=== PATIENT | male | born 1935 | race African-American/Black ===

== ENCOUNTER 2017-05-22 21:00 | Emergency (ER) | payer OTHER ==
[~2017-05-22] VITALS: Ht 177.8 cm; Wt 95.3 kg
[2017-05-22 23:12] LABS: Basophils # (auto) 0.1 uL; Basophils % (auto) 0.9 % (0.0-2.0); Eosinophils # (auto) 0.1 uL; Eosinophils % (auto) 0.9 % (0.0-7.0); Hematocrit 43.1 % (41.0-53.0); Hemoglobin 14.2 g/dL (13.5-17.5); Lymphocytes # (auto) 1.1 uL; Lymphocytes % (auto) 12.7 % (10.0-50.0); Mean Corpuscular Hemoglobin 28.2 pg (28.0-32.0); Mean Corpuscular Volume 85.6 fL (80.0-100.0); Monocytes # (auto) 0.7 uL; Monocytes % (auto) 8.2 % (0.0-12.0); Neutrophils # (auto) 6.6 uL; Neutrophils % (auto) 77.3 % (37.0-80.0); Nucleated Red Blood Cells % 0.1 %; Platelet Count (auto) 175 10^3/uL (140-450); Red Blood Cells 5.04 10^6/uL (4.5-5.90); Red Cell Distribution Width 15.2 % (11.8-14.3); White Blood Cell 8.6 10^3/uL (4.4-10.8)
[2017-05-22 23:23] LABS: Alanine Aminotransferase 19 U/L (16-61); Albumin 3.5 g/dL (3.4-5.0); Anion Gap 10 (5-15); Aspartate Aminotransferase 15 U/L (15-37); BUN/Creatinine Ratio 14.1; Blood Urea Nitrogen 26 mg/dL (7-18); Calcium 8.8 mg/dL (8.5-10.1); Carbon Dioxide 24 mmol/L (21-32); Chloride 103 mmol/L (98-107); GFR African American 45 mL/min; GFR Non-African American 37 mL/min; Glucose 167 mg/dL (74-106); Magnesium 2.1 mg/dL (1.6-2.6); Potassium 3.6 mmol/L (3.5-5.1); Sodium 137 mmol/L (136-145)
[2017-05-22 23:27] LABS: INR 2.4 (0.9-1.15); Partial Thromboplastin Time 36.9 sec (22.64-33.71); Prothrombin Time 26.4 sec (9.37-12.3)
[2017-05-22 23:28] LABS: Alkaline Phosphatase 76 U/L (45-117); Bilirubin, Total 1.2 mg/dL (0.2-1.0); Total Protein 7.7 g/dL (6.4-8.2)
[2017-05-22 23:48] LABS: Urine WBC None Seen /hpf (0 - 3)
[2017-05-22 23:59] LABS: Urine Bacteria NONE SEEN /hpf (None Seen); Urine Blood Negative /uL (Negative); Urine Specific Gravity 1.012 (1.001-1.035)
[2017-05-23] MEDS ORDERED: SODIUM CHLORIDE 0.9% 1,000 ML IV ONE (01:22)
[2017-05-23 02:24] LABS: Blood Alcohol < 3.0 mg/dL (0-5); Magnesium 2.1 mg/dL (1.6-2.6)
[2017-05-23 02:37] LABS: INR 2.49 (0.9-1.15); Partial Thromboplastin Time 36.7 sec (22.64-33.71); Prothrombin Time 27.4 sec (9.37-12.3)
[2017-05-23 03:09] VITALS: BP 144/70
== END 2017-05-23 04:15 | disposition home or self-care (01) ==
LOC: ER 21:00
DX: R42 Dizziness and giddiness (principal); R53.1 Weakness; E87.6 Hypokalemia; E86.0 Dehydration; E11.65 Type 2 diabetes mellitus with hyperglycemia; I10 Essential (primary) hypertension; I48.91 Unspecified atrial fibrillation; E78.00 Pure hypercholesterolemia, unspecified
CPT/HCPCS: 36415; 70450; 71045; 80053; 80320; 81001; 83735; 84484; 85025; 85379; 85610; 85730; 93005; 96360; 99285; J7030

== ENCOUNTER 2021-11-03 21:26 | Inpatient (IN) | payer OTHER ==
[~2021-11-03] VITALS: Ht 177.8 cm; Wt 93.7 kg
[2021-11-03 22:38] LABS: Urine WBC None Seen /hpf (0 - 3)
[2021-11-03 22:42] LABS: Basophils # (auto) 0.1 10 ^3/uL (0-0.2); Eosinophils # (auto) 0.2 10 ^3/uL (0-0.8); Monocytes # (auto) 0.9 10 ^3/uL (0-1.3); Neutrophils # (auto) 5.1 10 ^3/uL (1.6-8.6)
[2021-11-03 22:43] LABS: Eosinophils % (auto) 2.7 % (0.0-7.0); Hematocrit 34.1 % (41.0-53.0); Hemoglobin 10.8 g/dL (13.5-17.5); Lymphocytes # (auto) 1.5 10 ^3/uL (0.4-5.4); Lymphocytes % (auto) 19.3 % (10.0-50.0); Mean Corpuscular Hemoglobin 26.2 pg (28.0-32.0); Mean Corpuscular Hgb Conc. 31.8 g/dL (32.0-36.0); Mean Corpuscular Volume 82.4 fL (80.0-100.0); Red Blood Cells 4.14 10^6/uL (4.5-5.90); Red Cell Distribution Width 16.7 % (11.8-14.3); White Blood Cell 7.8 10^3/uL (4.4-10.8)
[2021-11-03 23:04] LABS: Albumin 3.5 g/dL (3.4-5.0); BUN/Creatinine Ratio 16.3; Calcium 8.7 mg/dL (8.5-10.1); Potassium 3.9 mmol/L (3.5-5.1)
[2021-11-03 23:05] LABS: Urine Bacteria FEW /hpf (None Seen); Urine Blood Negative /uL (Negative); Urine Hyaline Cast FEW /lpf (0 - 2); Urine Specific Gravity 1.013 (1.001-1.035)
[2021-11-03 23:17] LABS: Bilirubin, Total 1.2 mg/dL (0.2-1.0); Total Protein 7.3 g/dL (6.4-8.2)
[2021-11-04] MEDS ORDERED: amLODIPine BESYLATE 5 MG TAB PO ONE (00:45)
[2021-11-04 01:51] LABS: INR 1.84 (0.9-1.15)
[2021-11-04] MEDS ORDERED: NITROGLYCERIN 0.4 MG SL TAB SL PRN (06:30)
[2021-11-04] MEDS ORDERED: ONDANSETRON HCL 4 MG/2 ML VIAL IV PRN (06:30)
[2021-11-04] MEDS ORDERED: MORPHINE SULFATE INJ 2 MG/ml SYRG IV PRN (06:30)
[2021-11-04] MEDS ORDERED: ACETAMINOPHEN 325 MG TAB PO PRN (06:30)
[2021-11-04] MEDS: SPIRONOLACTONE 25 MG TAB PO SCH (09:53)
[2021-11-04] MEDS: LOSARTAN POTASSIUM 50 MG TAB PO SCH (09:54)
[2021-11-04] MEDS: METOPROLOL TARTRATE 25 MG TAB PO SCH ×2 (09:55→22:43)
[2021-11-04] MEDS ORDERED: ASPirin 81 mg TAB PO SCH (10:00)
[2021-11-04] MEDS: PANTOPRAZOLE 40 MG TAB PO SCH (10:10)
[2021-11-04 10:43] LABS: Cholesterol 110 mg/dL (< 200); HDL Cholesterol 43 mg/dL (40-59); LDL Cholesterol 62 mg/dL (< 100); Triglycerides 102 mg/dL (< 150)
[2021-11-04] MEDS: hydrALAZINE HCL 25 MG TAB PO SCH ×2 (14:51→22:42)
[2021-11-04 15:56] LABS: INR 2.03 (0.9-1.15); Partial Thromboplastin Time 37.9 sec (24.6-33.4)
[2021-11-04] MEDS ORDERED: WARFARIN SODIUM 2.5 MG TAB PO ONE ×2 (17:00→22:30)
[2021-11-04] MEDS: TAMSULOSIN HYDROCHLORIDE 0.4 MG CAP PO SCH (17:51)
[2021-11-04] MEDS: cloNIDine HCL 0.1 MG TAB PO PRN (18:50)
[2021-11-04 22:41] VITALS: BP 183/96
[2021-11-04] MEDS: ATORVASTATIN 20 MG TAB PO SCH (22:43)
[2021-11-04 23:26] VITALS: BP 176/89
[2021-11-05] VITALS (7 sets, daily range): BP systolic 149–188; BP diastolic 74–97
[2021-11-05] MEDS: cloNIDine HCL 0.1 MG TAB PO PRN ×2 (04:37→16:37)
[2021-11-05 05:08] LABS: Basophils # (auto) 0.1 10 ^3/uL (0-0.2); Basophils % (auto) 0.9 % (0.0-2.0); Eosinophils # (auto) 0.3 10 ^3/uL (0-0.8); Eosinophils % (auto) 3.3 % (0.0-7.0); Hemoglobin 11.3 g/dL (13.5-17.5); Lymphocytes # (auto) 1.3 10 ^3/uL (0.4-5.4); Lymphocytes % (auto) 16.8 % (10.0-50.0); Monocytes # (auto) 0.8 10 ^3/uL (0-1.3); Red Cell Distribution Width 16.5 % (11.8-14.3); White Blood Cell 7.9 10^3/uL (4.4-10.8)
[2021-11-05 05:11] LABS: Hematocrit 34.6 % (41.0-53.0); Mean Corpuscular Hemoglobin 26.5 pg (28.0-32.0); Mean Corpuscular Hgb Conc. 32.6 g/dL (32.0-36.0); Mean Corpuscular Volume 81.4 fL (80.0-100.0); Monocytes % (auto) 10.1 % (0.0-12.0); Neutrophils # (auto) 5.5 10 ^3/uL (1.6-8.6); Neutrophils % (auto) 68.9 % (37.0-80.0); Nucleated Red Blood Cells % 0.1 %; Red Blood Cells 4.24 10^6/uL (4.5-5.90)
[2021-11-05 05:18] LABS: Albumin 3.3 g/dL (3.4-5.0); BUN/Creatinine Ratio 17.4; Calcium 8.7 mg/dL (8.5-10.1); Potassium 3.8 mmol/L (3.5-5.1)
[2021-11-05 05:21] LABS: Bilirubin, Total 1.1 mg/dL (0.2-1.0); Total Protein 7.1 g/dL (6.4-8.2)
[2021-11-05 05:27] LABS: INR 1.91 (0.9-1.15); Partial Thromboplastin Time 38.2 sec (24.6-33.4)
[2021-11-05] MEDS: hydrALAZINE HCL 25 MG TAB PO SCH ×3 (05:40→21:40)
[2021-11-05] MEDS: PANTOPRAZOLE 40 MG TAB PO SCH (08:24)
[2021-11-05] MEDS: METOPROLOL TARTRATE 25 MG TAB PO SCH ×2 (08:25→21:39)
[2021-11-05] MEDS: SPIRONOLACTONE 25 MG TAB PO SCH (08:25)
[2021-11-05] MEDS: LOSARTAN POTASSIUM 50 MG TAB PO SCH (08:26)
[2021-11-05] MEDS ORDERED: WARFARIN SODIUM 2 MG TAB PO ONE (17:00)
[2021-11-05] MEDS: TAMSULOSIN HYDROCHLORIDE 0.4 MG CAP PO SCH (17:34)
[2021-11-05] MEDS ORDERED: hydrALAZINE HCL 20 MG/ML VL IV ONE (17:45)
[2021-11-05] MEDS ORDERED: TAM04C PO (20:31)
[2021-11-05] MEDS ORDERED: ASPI-543 PO (20:31)
[2021-11-05] MEDS ORDERED: METO-158 PO (20:31)
[2021-11-05] MEDS ORDERED: SODI325T PO (20:31)
[2021-11-05] MEDS ORDERED: TROS20TA3 PO (20:31)
[2021-11-05] MEDS ORDERED: WARF2.5T39 PO (20:31)
[2021-11-05] MEDS ORDERED: HYDR-4298 PO (20:31)
[2021-11-05] MEDS ORDERED: CALC0.25 PO (20:31)
[2021-11-05] MEDS ORDERED: FERR-20 PO (20:31)
[2021-11-05] MEDS ORDERED: LOSA-39 PO (20:31)
[2021-11-05] MEDS ORDERED: ATOR80TA PO (20:31)
[2021-11-05] MEDS: ATORVASTATIN 20 MG TAB PO SCH (21:39)
[2021-11-05] MEDS ORDERED: SPIR25TA PO (22:53)
[2021-11-06] VITALS (7 sets, daily range): BP systolic 142–170; BP diastolic 68–88
[2021-11-06] MEDS: hydrALAZINE HCL 25 MG TAB PO SCH (05:51)
[2021-11-06 06:07] LABS: INR 2.33 (0.9-1.15); Partial Thromboplastin Time 39.3 sec (24.6-33.4)
[2021-11-06] MEDS: PANTOPRAZOLE 40 MG TAB PO SCH (10:19)
[2021-11-06] MEDS: METOPROLOL TARTRATE 25 MG TAB PO SCH ×2 (10:19→20:02)
[2021-11-06] MEDS: SPIRONOLACTONE 25 MG TAB PO SCH (10:19)
[2021-11-06] MEDS: LOSARTAN POTASSIUM 50 MG TAB PO SCH (10:20)
[2021-11-06] MEDS ORDERED: CLON0.1T PO (13:03)
[2021-11-06] MEDS: cloNIDine HCL 0.1 MG TAB PO PRN (15:58)
[2021-11-06] MEDS ORDERED: WARFARIN SODIUM 2.5 MG TAB PO ONE (17:00)
[2021-11-06] MEDS ORDERED: hydrALAZINE HCL 20 MG/ML VL IV ONE (17:45)
[2021-11-06] MEDS: TAMSULOSIN HYDROCHLORIDE 0.4 MG CAP PO SCH (17:47)
[2021-11-06] MEDS: ATORVASTATIN 20 MG TAB PO SCH (20:01)
[2021-11-06] MEDS ORDERED: hydrALAZINE HCL 25 MG TAB PO SCH (22:00)
== END 2021-11-06 22:10 | disposition home or self-care (01) | DRG 305 ==
LOC: ER 21:26 → TELE 11-04 06:40 → TELE-WESTW 11-04 21:52
PROVIDERS: ADMIT Nurse Practitioner; ATTEND Internal Medicine Nephrology
DX: I16.1 Hypertensive emergency (principal); D68.9 Coagulation defect, unspecified; G93.40 Encephalopathy, unspecified; N17.9 Acute kidney failure, unspecified; E78.5 Hyperlipidemia, unspecified; F17.200 Nicotine dependence, unspecified, uncomplicated; I48.91 Unspecified atrial fibrillation; Z20.822 Contact with and (suspected) exposure to COVID-19; E11.22 Type 2 diabetes mellitus with diabetic chronic kidney disease; N18.32 Chronic kidney disease, stage 3b; I12.9 Hypertensive chronic kidney disease with stage 1 through stage 4 chronic kidney disease, or unspecified chronic kidney disease; G35 Multiple sclerosis; I27.21 Secondary pulmonary arterial hypertension; Z79.01 Long term (current) use of anticoagulants; Z79.899 Other long term (current) drug therapy; Z95.2 Presence of prosthetic heart valve; Z88.8 Allergy status to other drugs, medicaments and biological substances; I05.0 Rheumatic mitral stenosis
CPT/HCPCS: 36415; 70450; 70551; 71045; 76775; 80053; 80061; 81001; 83880; 84484; 85025; 85610; 85730; 93005; 93306; 93886; 95819; G0378